=== PATIENT | female | born 1990 | race Two or more races ===

== ENCOUNTER 2016-07-08 21:13 | Emergency (ER) | payer OTHER ==
--- NOTE | 2016-07-08 21:57 | ER Document Report ---
ED Medical Screen (RME) - General Chief Complaint: Vaginal Bleeding Stated Complaint: VAGINAL BLEEDING W/ Time seen by provider: 21:55 Mode of Arrival: Ambulatory Information source: Patient Notes: 26 yo female presents to ed for abdominal pain vaginal bleeding and she is 10 weeks . LMP 04/29/16 TRAVEL OUTSIDE OF THE [place] IN LAST 30 DAYS: No - HPI Onset: This evening - 1900 Onset/Duration: Gradual, Worse Quality of pain: Achy, Cramping Severity: Moderate Pain Level: 3 Associated Symptoms: Abdominal pain, Nausea, Vaginal bleeding - 1 pad in 3 hours , Other - Exacerbated by: Denies Relieved by: Denies Similar symptoms previously: No Recently seen / treated by doctor: Yes - Related Data Smoking: Non-smoker, Quit greater than 1 year Frequency of alcohol use: None Drug Abuse: None Allergies/Adverse Reactions: latex Allergy (Mild, Verified 07/08/16 21:41) Past Medical History - Social History Chew tobacco use (# tins/day): No Frequency of alcohol use: None Drug Abuse: None Physical Exam - Vital signs Vitals: Temp Pulse Resp BP Pulse Ox 98.3 F 79 18 115/73 99 07/08/16 21:43 07/08/16 21:43 07/08/16 21:43 07/08/16 21:43 07/08/16 21:43 Course - Vital Signs Vital signs: Temp Pulse Resp BP Pulse Ox 98.3 F 79 18 115/73 99 07/08/16 21:43 07/08/16 21:43 07/08/16 21:43 07/08/16 21:43 07/08/16 21:43
[2016-07-08 22:22] LABS: ABSOLUTE BASOPHILS # (AUTO) 0.1 10^3/uL (0.0-0.2); ABSOLUTE EOSINOPHILS # (AUTO) 0.1 10^3/uL (0.0-0.6); ABSOLUTE LYMPHOCYTES (AUTO) 2.6 10^3/uL (0.5-4.7); ABSOLUTE MONOCYTES (AUTO) 0.6 10^3/uL (0.1-1.4); ABSOLUTE NEUT (AUTO) 4.1 10^3/uL (1.7-8.2); EOSINOPHILS % (AUTO) 1.9 % (0-6); HEMATOCRIT 33.1 % (36.0-47.0); HEMOGLOBIN 11.4 g/dL (12.0-15.5); HGB HCT DIFFERENCE 1.1; LYMPHOCYTES % (AUTO) 34.3 % (13-45); MEAN CORPUSCULAR HEMOGLOBIN 29.2 pg (27.0-33.4); MEAN CORPUSCULAR HGB CONC 34.3 g/dL (32.0-36.0); MEAN CORPUSCULAR VOLUME 85 fl (80-97); MONOCYTES % (AUTO) 8.5 % (3-13); RED BLOOD COUNT 3.89 10^6/uL (3.72-5.28); RED CELL DISTRIBUTION WIDTH 12.5 % (11.5-14.0); SEGMENTED NEUTROPHILS % (AUTO) 54.3 % (42-78); WHITE BLOOD COUNT 7.6 10^3/uL (4.0-10.5)
[2016-07-08 22:38] LABS: ALANINE AMINOTRANSFERASE 56 U/L (9-52); ALBUMIN 4.7 g/dL (3.5-5.0); ALKALINE PHOSPHATASE 56 U/L (38-126); ANION GAP 13 (5-19); ASPARTATE AMINO TRANSFERASE 43 U/L (14-36); BILIRUBIN,TOTAL 0.2 mg/dL (0.2-1.3); BLOOD UREA NITROGEN 9 mg/dL (7-20); CALCIUM 9.7 mg/dL (8.4-10.2); CARBON DIOXIDE 24 mmol/L (22-30); CHLORIDE 102 mmol/L (98-107); GLUCOSE 81 mg/dL (75-110); POTASSIUM 4.3 mmol/L (3.6-5.0); SODIUM 139.1 mmol/L (137-145); TOTAL PROTEIN 7.3 g/dL (6.3-8.2)
--- NOTE | 2016-07-09 02:00 | ER Document Report ---
ED General - General Chief Complaint: Vaginal Bleeding Stated Complaint: VAGINAL BLEEDING W/ Mode of Arrival: Ambulatory Notes: Patient is a 26-year-old female at 10 weeks by LMP who presents with vaginal bleeding. Describes it as less than a typical period bleed. Notes associated mild suprapubic abdominal cramping. Nothing improves or worsens this cramping pain. No history of similar symptoms during this . She has not spoken to her primary COMMUNICATIONS PROGRAMMER regarding today's concerns. She denies any associated vomiting, diarrhea or fever. No history of abdominal trauma. TRAVEL OUTSIDE OF THE [place] IN LAST 30 DAYS: No - HPI Onset: This afternoon Onset/Duration: Gradual Quality of pain: Cramping Severity: Mild Pain Level: 1 Associated symptoms: None Exacerbated by: Denies Relieved by: Denies Similar symptoms previously: No Recently seen / treated by doctor: No - Related Data Allergies/Adverse Reactions: latex Allergy (Mild, Verified 07/08/16 21:41) Past Medical History - General Information source: Patient Last Menstrual Period: 04/29/16 - Social History Smoking Status: Never Smoker Chew tobacco use (# tins/day): No Frequency of alcohol use: None Drug Abuse: None Lives with: Spouse/Significant other Family History: Reviewed & Not Pertinent Patient has suicidal ideation: No Patient has homicidal ideation: No - Immunizations Hx Diphtheria, Pertussis, Tetanus Vaccination: Yes Review of Systems - Review of Systems Notes: Constitutional: Negative for fever. HENT: Negative for sore throat. Eyes: Negative for visual changes. Cardiovascular: Negative for chest pain. Respiratory: Negative for shortness of breath. Gastrointestinal: Positive for abdominal cramps Genitourinary: Negative for dysuria. Positive for vaginal bleeding Musculoskeletal: Negative for back pain. Skin: Negative for rash. Neurological: Negative for headaches, weakness or numbness. 10 point ROS negative except as marked above and in HPI. Physical Exam - Vital signs Vitals: Temp Pulse Resp BP Pulse Ox 98.3 F 79 18 115/73 99 07/08/16 21:43 07/08/16 21:43 07/08/16 21:43 07/08/16 21:43 07/08/16 21:43 Interpretation: Normal Notes: PHYSICAL EXAMINATION: GENERAL: Well-appearing, well-nourished and in no acute distress. HEAD: Atraumatic, normocephalic. EYES: Pupils equal round and reactive to light, extraocular movements intact, sclera anicteric, conjunctiva are normal. ENT: nares patent, oropharynx clear without exudates. Moist mucous membranes. NECK: Normal range of motion, supple without lymphadenopathy LUNGS: Breath sounds clear to auscultation bilaterally and equal. No wheezes rales or rhonchi. HEART: Regular rate and rhythm without murmurs ABDOMEN: Soft, nontender, normoactive bowel sounds. No guarding, no rebound. No masses appreciated. EXTREMITIES: Normal range of motion, no pitting or edema. No cyanosis. NEUROLOGICAL: No focal neurological deficits. Moves all extremities spontaneously and on command. PSYCH: Normal mood, normal affect. SKIN: Warm, Dry, normal turgor, no rashes or lesions noted. Course - Re-evaluation Re-evalutation: 07/09/16 04:32 Patient presents with a mild amount of vaginal bleeding in the setting of an early first trimester . Transvaginal ultrasound shows likely abnormal with an abnormal gestational sac and no visualization of the pole despite a quantitative hCG that would suggest that we should be visualizing a fetus at this time. No active bleeding at time of presentation. She is Rh positive. Patient's abdominal exam is otherwise benign without any focal tenderness. I do not suspect an acute appendicitis, pyelonephritis, cystitis, or bowel obstruction. At this time I have informed the patient that she needs to return to the emergency department or the women's clinic in 48 hours for recheck of her quantitative beta hCG to assess whether or not this is a normal as well as mentioned a need for a possible repeat ultrasound. At this time will discharge with return precautions and follow-up recommendations. Verbal discharge instructions given a the bedside and opportunity for questions given. Medication warnings reviewed. Patient is in agreement with this plan and has verbalized understanding of return precautions and the need for primary care follow-up in the next 24-72 hours. - Vital Signs Vital signs: Temp Pulse Resp BP Pulse Ox 98.5 F 76 14 112/68 99 07/09/16 02:33 07/09/16 02:33 07/09/16 02:33 07/09/16 02:33 07/09/16 02:33 - Laboratory Result Diagrams: 07/08/16 22:05 07/08/16 22:05 Laboratory results interpreted by me: 07/08/16 07/08/16 22:05 22:05 Hgb 11.4 L Hct 33.1 L AST 43 H ALT 56 H Beta HCG, Quant 84682.00 H - Diagnostic Test Radiology reviewed: Reports reviewed Discharge - Discharge Clinical Impression: First trimester bleeding Condition: Good Disposition: HOME, SELF-CARE Additional Instructions: You need to return to the ED or the women's health clinic in 48 hours for a recheck of your hormone level and possibly a repeat ultrasound. Today 's ultrasound shows an irregular gestational sac and no pole which is concerning in the setting of you having bleeding for an abnormal . However, it is very important that you follow-up with OB to confirm whether or not this will be a that will go on to result in a baby. Please return if you develop severe abdominal pain, bleeding that goes through more than 2 pads for more than 2 hours, pass out, or have any other symptoms that are concerning to you.
[2016-07-09 02:37] VITALS: BP 112/68
== END 2016-07-09 02:37 | disposition home or self-care (01) ==
LOC: ER 21:13
DX: O20.9 Hemorrhage in early pregnancy, unspecified (principal); Z91.040 Latex allergy status
CPT/HCPCS: 36415; 76817; 80053; 84702; 85025; 86900; 86901; 99284

== ENCOUNTER 2016-07-10 03:50 | Emergency (ER) | payer OTHER ==
[2016-07-10] MEDS ORDERED: ONDANSETRON 4 MG TAB.RAPDIS PO ONE (04:10)
[2016-07-10] MEDS ORDERED: OXYCODONE-ACETAMINOPHEN 5-325 MG TABLET PO ONE (04:10)
--- NOTE | 2016-07-10 04:19 | ER Document Report ---
ED General - General Chief Complaint: Vaginal Bleeding Stated Complaint: VAGINAL BLEEDING Mode of Arrival: Ambulatory Information source: Patient Notes: Patient presents to the emergency department with complaints of heavy vaginal bleeding. Patient reports she was diagnosed with a miscarriage last night. She reports she started bleeding heavily today and has gone through 3 panty liners in the past hour. She reports a large blood clot prior to arrival. She also complains of severe cramping and nausea. She denies trauma, denies pain with void. TRAVEL OUTSIDE OF THE [place] IN LAST 30 DAYS: No - HPI Onset: Just prior to arrival Onset/Duration: Persistent Quality of pain: Cramping Severity: Severe Pain Level: 5 Associated symptoms: Nausea Exacerbated by: Denies Relieved by: Denies Similar symptoms previously: Yes Recently seen / treated by doctor: Yes - Related Data Allergies/Adverse Reactions: latex Allergy (Mild, Verified 07/08/16 21:41) Past Medical History - General Information source: Patient Last Menstrual Period: 10 weeks - Social History Smoking Status: Unknown if Ever Smoked Cigarette use (# per day): No Chew tobacco use (# tins/day): No Frequency of alcohol use: None Drug Abuse: None Family History: Reviewed & Not Pertinent Patient has suicidal ideation: No Patient has homicidal ideation: No - Medical History Medical History: Negative Surgical Hx: Negative - Immunizations Hx Diphtheria, Pertussis, Tetanus Vaccination: Yes Review of Systems - Review of Systems Notes: Review HPI for review of systems., All other systems negative Physical Exam - Vital signs Vitals: Temp Pulse Resp BP Pulse Ox 98.0 F 95 16 129/98 H 100 07/10/16 04:00 07/10/16 04:00 07/10/16 04:00 07/10/16 04:00 07/10/16 04:00 - Notes Notes: PHYSICAL EXAMINATION: GENERAL: Well-appearing, nontoxic looking, tearful HEAD: Atraumatic, normocephalic. EYES: Pupils equal round extraocular movements intact, sclera anicteric, conjunctiva are normal. ENT: nares patent, Moist mucous membranes. NECK: Normal range of motion, supple without lymphadenopathy LUNGS: CTAB and equal. No wheezes rales or rhonchi. HEART: Regular rate and rhythm without murmurs ABDOMEN: Soft, c/o lower abdominal tenderness. No guarding, no rebound BACK: C/O right flank pain EXTREMITIES: Normal range of motion, NEUROLOGICAL: Cranial nerves grossly intact. Normal sensory/motor PSYCH: Normal mood, normal affect. SKIN: Warm, Dry, normal turgor, no rashes or lesions noted - Genitourinary External exam: Normal Speculum exam: Cervix open Vaginal bleeding: Moderate Bimanuel exam: Normal Course - Re-evaluation Re-evalutation: 07/10/16 05:05 Pelvic completed, pt with blood clot and tissue in cervical opening. Pt tolerated procedure well, reports percocet helped pain. Consulted dr cardenas, does not advise US. 07/10/16 05:39 Patient reports pain is minimal. She was instructed on miscarriage. She was instructed to return to the emergency department for severe bleeding or pain. She verbalized understanding. 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 She reports [place] - Vital Signs Vital signs: Temp Pulse Resp BP Pulse Ox 98.5 F 75 18 111/58 L 97 07/10/16 05:19 07/10/16 05:19 07/10/16 05:19 07/10/16 05:19 07/10/16 05:19 - Laboratory Result Diagrams: 07/10/16 04:19 07/10/16 04:19 Laboratory results interpreted by me: 07/10/16 07/10/16 04:19 04:19 WBC 10.9 H Hgb 11.7 L Hct 32.4 L AST 99 H ALT 100 H Beta HCG, Quant 6856.10 H Procedures - Pelvic Exam Pelvic exam Cultures obtained: No Wet prep obtained: No Herpes culture obtained: No POC sent to lab: No Witnessed by: [email or web address] ONEIL Discharge - Discharge Clinical Impression: Vaginal bleeding, Incomplete miscarriage Condition: Stable Disposition: HOME, SELF-CARE Instructions: Miscarriage Impending ([facility]), Oral Narcotic Medication ([facility]), Antinausea Medication ([facility]) Additional Instructions: *You have been evaluated for abdominal cramping, vaginal bleeding, Incomplete miscarriage *Take medication as prescribed for acute pain and nausea *Follow up with your ANIMAL CONTROL LICENSING WORKER within one week *pelvic rest, no sex until follow up with your ANIMAL CONTROL LICENSING WORKER *Return to ED for worsening condition, changes, needs, increased bleeding, pain *Return to ED if not better in 24 hours Forms: Elevated Blood Pressure, Return to Work
[2016-07-10 04:31] LABS: ABSOLUTE BASOPHILS # (AUTO) 0.1 10^3/uL (0.0-0.2); ABSOLUTE EOSINOPHILS # (AUTO) 0.1 10^3/uL (0.0-0.6); ABSOLUTE LYMPHOCYTES (AUTO) 2.4 10^3/uL (0.5-4.7); ABSOLUTE MONOCYTES (AUTO) 0.7 10^3/uL (0.1-1.4); ABSOLUTE NEUT (AUTO) 7.6 10^3/uL (1.7-8.2); BASOPHILS % (AUTO) 0.7 % (0-2); EOSINOPHILS % (AUTO) 1.1 % (0-6); HEMATOCRIT 32.4 % (36.0-47.0); HEMOGLOBIN 11.7 g/dL (12.0-15.5); HGB HCT DIFFERENCE 2.7; LYMPHOCYTES % (AUTO) 21.9 % (13-45); MEAN CORPUSCULAR HEMOGLOBIN 30.4 pg (27.0-33.4); MEAN CORPUSCULAR VOLUME 85 fl (80-97); MONOCYTES % (AUTO) 6.6 % (3-13); RED BLOOD COUNT 3.83 10^6/uL (3.72-5.28); RED CELL DISTRIBUTION WIDTH 12.5 % (11.5-14.0); SEGMENTED NEUTROPHILS % (AUTO) 69.7 % (42-78); WHITE BLOOD COUNT 10.9 10^3/uL (4.0-10.5)
[2016-07-10 04:50] LABS: ALANINE AMINOTRANSFERASE 100 U/L (9-52); ALKALINE PHOSPHATASE 66 U/L (38-126); ANION GAP 12 (5-19); ASPARTATE AMINO TRANSFERASE 99 U/L (14-36); BILIRUBIN,TOTAL 0.3 mg/dL (0.2-1.3); BLOOD UREA NITROGEN 11 mg/dL (7-20); CARBON DIOXIDE 24 mmol/L (22-30); CHLORIDE 103 mmol/L (98-107); CREATININE RESULT 0.63 mg/dL (0.52-1.25); GLUCOSE 93 mg/dL (75-110); POTASSIUM 4.2 mmol/L (3.6-5.0); SODIUM 138.5 mmol/L (137-145); TOTAL PROTEIN 6.6 g/dL (6.3-8.2)
[2016-07-10 05:20] VITALS: BP 111/58
[2016-07-10] MEDS ORDERED: ONDANSETRON ODT 4 MG TAB (6 TAB/DSPK) PO PRN (05:24)
[2016-07-10] MEDS ORDERED: HYDROCODONE/ACETAMINOPHEN 5-325 MG 6 TAB/DSPK PO PRN (05:24)
== END 2016-07-10 05:54 | disposition home or self-care (01) ==
LOC: ER 03:50
DX: O03.4 Incomplete spontaneous abortion without complication (principal); N93.9 Abnormal uterine and vaginal bleeding, unspecified; R10.9 Unspecified abdominal pain; R11.0 Nausea
CPT/HCPCS: 99284; 36415; 84702; 85025; 80053; S0119